=== PATIENT | female | born 1970 | race American Indian/Alaskan Native ===

== ENCOUNTER 2016-11-04 12:45 | Emergency (ER) | payer MEDICAID, OTHER ==
[2016-11-04 17:11] VITALS: BP 176/109
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
--- NOTE | 2016-11-05 09:59 | XRay Report ---
CERVICAL SPINE, 3 views: History: Neck pain. Findings: The vertebral bodies, disk spaces, posterior elements and prevertebral soft tissues are unremarkable. The dens is intact. No acute fracture or malalignment is identified. Impression: 1. No evidence for acute injury to the cervical spine.
--- NOTE | 2016-11-05 09:59 | XRay Report ---
AP CHEST: HISTORY: chest pain AP view of the chest demonstrates a normal mediastinal and cardiac contour with clear lungs and normal bony and soft tissue structures. IMPRESSION: Unremarkable AP chest.
== END 2016-11-04 19:25 | disposition home or self-care (01) ==
LOC: ED 12:45
DX: S16.1XXA Strain of muscle, fascia and tendon at neck level, initial encounter (principal); S20.219A Contusion of unspecified front wall of thorax, initial encounter; Y99.9 Unspecified external cause status; Y93.9 Activity, unspecified; Y92.9 Unspecified place or not applicable; V49.49XA Driver injured in collision with other motor vehicles in traffic accident, initial encounter
CPT/HCPCS: 71010; 72040; 99283

== ENCOUNTER 2017-11-14 08:41 | Emergency (ER) | payer OTHER ==
[2017-11-14 09:40] LABS: Basophils % (Auto) 0.5 % (0.0-1.8); Eosinophils # (Auto) 0.2 K/mm3 (0.0-0.4); Eosinophils % (Auto) 2.1 % (0.0-4.3); Hematocrit 33.3 % (30.3-42.9); Hemoglobin 10.5 gm/dl (10.1-14.3); Lymphocytes % (Auto) 26.1 % (13.4-35.0); Mean Corpuscular HGB Conc 32 % (30-34); Mean Corpuscular Volume 81 fl (79-97); Monocytes # (Auto) 0.4 K/mm3 (0.0-0.8); Monocytes % (Auto) 5.8 % (0.0-7.3); Platelet Count 315 K/mm3 (140-440); Red Blood Count 4.09 M/mm3 (3.65-5.03); Red Cell Distribution Width 18.8 % (13.2-15.2)
[2017-11-14 09:45] LABS: Mean Corpuscular Hemoglobin 26 pg (28-32)
[2017-11-14 09:54] LABS: BUN/Creatinine Ratio 13; Blood Urea Nitrogen 9 mg/dL (7-17); Calcium 9.1 mg/dL (8.4-10.2); Hemolysis Index 16
[2017-11-14] MEDS ORDERED: ZOFRAN IV ONE (09:59)
[2017-11-14] MEDS ORDERED: PROTONIX IV ONE (10:30)
--- NOTE | 2017-11-14 11:08 | Emergency Department Report ---
ED General Adult HPI - General Chief complaint: Syncope Stated complaint: ABDOMINAL PAIN Time Seen by Provider: 11/14/17 09:58 Source: patient Mode of arrival: Stretcher Limitations: No Limitations - History of Present Illness Initial comments: Patient complains of nausea, vomiting, diarrhea started 1 AM this morning. Patient also states that she's had some abdominal cramping since that time. Patient states today at work she felt slightly weird and begin to see white spots along with feeling lightheaded. Patient states the next thing she remembers is waking up with people around her. -: Sudden Radiation: non-radiation Severity scale (0 -10): 0 Improves with: none Worsens with: none Associated Symptoms: denies other symptoms Treatments Prior to Arrival: none - Related Data Home Medications Medication Instructions Recorded Confirmed Last Taken Albuterol Sulfate [Ventolin HFA] 2 puff IH Q4H PRN 04/28/13 04/28/13 04/28/13 14 :00 Previous Rx's Medication Instructions Recorded Last Taken Type Ciprofloxacin [Ciprofloxacin ORAL 500 mg PO Q12H 5 Days ml 04/28/13 Unknown Rx LIQ] Hydrocortisone/Pramoxine 10 gm RC BID #1 foam 04/28/13 Unknown Rx [Proctofoam-Hc 1%-1% Foam] Loperamide [Imodium] 2 mg PO Q2HR #15 capsule 04/28/13 Unknown Rx Ondansetron [Zofran TAB] 4 mg PO ONCE #15 tablet 04/28/13 Unknown Rx oxyCODONE /ACETAMINOPHEN [Percocet 1 tab PO Q6HR PRN #15 tablet 04/28/13 Unknown Rx 5/325 mg] Cyclobenzaprine [Flexeril] 10 mg PO BID PRN #20 tablet 11/04/16 Unknown Rx Naproxen [Naprosyn TAB] 500 mg PO BID #20 tablet 11/04/16 Unknown Rx traMADol [Ultram] 50 mg PO Q4HR PRN #30 tablet 11/04/16 Unknown Rx Allergies Allergy/AdvReac Type Severity Reaction Status Date / Time No Known Allergies Allergy Verified 11/04/16 13:55 ED Review of Systems ROS: Stated complaint: ABDOMINAL PAIN Other details as noted in HPI Comment: All other systems reviewed and negative Constitutional: denies: chills, fever Eyes: denies: eye pain, eye discharge, vision change ENT: denies: ear pain, throat pain Respiratory: denies: cough, shortness of breath, wheezing Cardiovascular: denies: chest pain, palpitations Endocrine: no symptoms reported Gastrointestinal: nausea, vomiting, diarrhea. denies: abdominal pain Genitourinary: denies: urgency, dysuria, discharge Musculoskeletal: denies: back pain, joint swelling, arthralgia Skin: denies: rash, lesions Neurological: other (syncope). denies: headache, weakness, paresthesias Psychiatric: denies: anxiety, depression Hematological/Lymphatic: denies: easy bleeding, easy bruising ED Past Medical Hx - Past Medical History Hx Hypertension: Yes Hx Asthma: Yes - Surgical History Additional Surgical History: x 3. TUBAL LIGATION - Social History Smoking Status: Unknown if ever smoked - Medications Home Medications: Home Medications Medication Instructions Recorded Confirmed Last Taken Type Albuterol Sulfate [Ventolin HFA] 2 puff IH Q4H PRN 04/28/13 04/28/13 04/28/13 14 :00 History Ciprofloxacin [Ciprofloxacin ORAL 500 mg PO Q12H 5 Days ml 04/28/13 Unknown Rx LIQ] Hydrocortisone/Pramoxine 10 gm RC BID #1 foam 04/28/13 Unknown Rx [Proctofoam-Hc 1%-1% Foam] Loperamide [Imodium] 2 mg PO Q2HR #15 capsule 04/28/13 Unknown Rx Ondansetron [Zofran TAB] 4 mg PO ONCE #15 tablet 04/28/13 Unknown Rx oxyCODONE /ACETAMINOPHEN [Percocet 1 tab PO Q6HR PRN #15 tablet 04/28/13 Unknown Rx 5/325 mg] Cyclobenzaprine [Flexeril] 10 mg PO BID PRN #20 tablet 11/04/16 Unknown Rx Naproxen [Naprosyn TAB] 500 mg PO BID #20 tablet 11/04/16 Unknown Rx traMADol [Ultram] 50 mg PO Q4HR PRN #30 tablet 11/04/16 Unknown Rx ED Physical Exam - General Limitations: No Limitations General appearance: alert, in no apparent distress - Head Head exam: Present: atraumatic, normocephalic - Eye Eye exam: Present: normal appearance, PERRL, EOMI - ENT ENT exam: Present: mucous membranes moist - Neck Neck exam: Present: normal inspection, other (no carotid bruit) - Respiratory Respiratory exam: Present: normal lung sounds bilaterally. Absent: respiratory distress, wheezes, rales, rhonchi - Cardiovascular Cardiovascular Exam: Present: regular rate, normal rhythm. Absent: systolic murmur, diastolic murmur, rubs, gallop - GI/Abdominal GI/Abdominal exam: Present: soft, normal bowel sounds. Absent: distended, tenderness - Extremities Exam Extremities exam: Present: normal inspection - Back Exam Back exam: Present: normal inspection - Neurological Exam Neurological exam: Present: alert, oriented X3, CN II-XII intact. Absent: motor sensory deficit - Psychiatric Psychiatric exam: Present: normal affect, normal mood - Skin Skin exam: Present: warm, dry, intact, normal color ED Course Vital Signs 11/14/17 11/14/17 08:54 09:17 Temperature 98.3 F Pulse Rate 75 Respiratory 18 18 Rate Blood Pressure 132/84 O2 Sat by Pulse 99 Oximetry ED Medical Decision Making - Lab Data Result diagrams: 11/14/17 09:23 11/14/17 09:23 - EKG Data -: EKG Interpreted by [place] EKG shows normal: sinus rhythm Rate: normal - EKG Data Interpretation: normal EKG - Medical Decision Making Discussed results with patient Patient offered admission but she politely declined Critical care attestation.: If time is entered above; I have spent that time in minutes in the direct care of this critically ill patient, excluding procedure time. ED Disposition Clinical Impression: Vasovagal episode Disposition: -01 TO HOME OR SELFCARE Is pt being admited?: No Does the pt Need Aspirin: No Condition: Stable Instructions: Syncope (ED) Additional Instructions: Return if symptoms become worse Referrals: PRIMARY CAREMD [Primary Care Provider] - 3-5 Days PAIGE CASTILLO MD [Staff Physician] - 3-5 Days Time of Disposition: 13:20
--- NOTE | 2017-11-14 12:30 | Cat Scan Report ---
CT HEAD WITHOUT CONTRAST: HISTORY: Syncope. TECHNIQUE: Sequential 2.5mm CT images. COMPARISON: none. FINDINGS: Cerebral Parenchyma: Within normal limits. Cerebellum: Within normal limits. Brainstem: Within normal limits. Ventricles: Normal. Sella: Normal. Extra-axial spaces: Normal. Basal Cisterns: Normal. Intracranial Hemorrhage: None. Midline Shift: None. Calvarium: Normal. Sinuses: Normal. Mastoid Air Cells: Normal. Visualized Orbits: Normal. IMPRESSION: Cranial CT scan within normal limits.
[2017-11-14 13:40] VITALS: BP 156/96
== END 2017-11-14 13:38 | disposition home or self-care (01) ==
LOC: ED 08:41
DX: R55 Syncope and collapse (principal); I10 Essential (primary) hypertension; J45.909 Unspecified asthma, uncomplicated; Z98.51 Tubal ligation status
CPT/HCPCS: 36415; 70450; 80048; 84484; 85025; 93005; 93010; 96374; 96375; 99284; C9113; J2405

== ENCOUNTER 2018-10-19 09:55 | Emergency (ER) | payer OTHER ==
[2018-10-19 10:54] LABS: Bilirubin,Urine NEG (Negative); Blood,Urine NEG (Negative); Color,Urine Yellow (Yellow); Mucus,Urine FEW /HPF; Protein,Urine <15 mg/dL mg/dL (Negative); Urobilinogen,Urine < 2.0 mg/dL (<2.0)
[2018-10-19 10:55] LABS: HCG Qualitative,Urine Negative (Negative)
[2018-10-19] MEDS ORDERED: PERCOCET 5/325 PO ONE (11:08)
--- NOTE | 2018-10-19 11:27 | Emergency Department Report ---
HPI - General Chief Complaint: Abdominal Pain Time Seen by Provider: 10/19/18 11:08 - HPI HPI: 48-year-old female presents to the emergency department with complaint of some lower abdominal pain with radiation to the back and has been going on for the past 3-4 days. At first the symptoms were intermittent but has become more constant and more intense recently. She also complains of some fever at night with a MAXIMUM TEMPERATURE of 99.7 Fahrenheit. She tried some ibuprofen and Tylenol with only some transient relief. She has a past medical history of asthma and hypertension. No primary care physician. No recent travel or sick contacts at home. She denies any dysuria, vaginal bleeding or discharge, nausea or vomiting. ED Past Medical Hx - Past Medical History Hx Hypertension: Yes Hx Asthma: Yes - Surgical History Past Surgical History?: Yes Additional Surgical History: x 3. TUBAL LIGATION - Social History Smoking Status: Current Every Day Smoker Substance Use Type: Alcohol - Medications Home Medications: Home Medications Medication Instructions Recorded Confirmed Last Taken Type Albuterol Sulfate [Ventolin HFA] 2 puff IH Q4H PRN 04/28/13 04/28/13 04/28/13 14:00 History Ciprofloxacin [Ciprofloxacin ORAL 500 mg PO Q12H 5 Days ml 04/28/13 Unknown Rx LIQ] Hydrocortisone/Pramoxine 10 gm RC BID #1 foam 04/28/13 Unknown Rx [Proctofoam-Hc 1%-1% Foam] Loperamide [Imodium] 2 mg PO Q2HR #15 capsule 04/28/13 Unknown Rx Ondansetron [Zofran TAB] 4 mg PO ONCE #15 tablet 04/28/13 Unknown Rx Cyclobenzaprine [Flexeril] 10 mg PO BID PRN #20 tablet 11/04/16 Unknown Rx Naproxen [Naprosyn TAB] 500 mg PO BID #20 tablet 11/04/16 Unknown Rx traMADol [Ultram] 50 mg PO Q4HR PRN #30 tablet 11/04/16 Unknown Rx Lisinopril 20 mg PO QDAY #30 tablet 10/19/18 Unknown Rx oxyCODONE /ACETAMINOPHEN [Percocet 1 tab PO Q6HR PRN #12 tablet 10/19/18 Unknown Rx 5/325 mg] ED Review of Systems ROS: Stated complaint: STOMACH AND BACK PAIN Other details as noted in HPI Comment: All other systems reviewed and negative Constitutional: denies: chills, fever Eyes: denies: eye pain, vision change ENT: denies: ear pain, throat pain Respiratory: denies: cough, shortness of breath Cardiovascular: denies: chest pain, palpitations Gastrointestinal: abdominal pain. denies: nausea, vomiting Genitourinary: denies: urgency, dysuria Musculoskeletal: back pain. denies: arthralgia Skin: denies: rash, lesions Neurological: denies: headache, weakness Physical Exam - Physical Exam Vital Signs: Vital Signs 10/19/18 10:00 Temperature 98.4 F Pulse Rate 89 Respiratory 20 Rate Blood Pressure 177/119 O2 Sat by Pulse 99 Oximetry Physical Exam: GENERAL: The patient is well-developed well-nourished. HEENT: Normocephalic. Atraumatic. Patient has moist mucous membranes. EYES: Extraocular motions are intact. Pupils are equal and reactive to light bilaterally. NECK: Supple. Trachea is midline. CHEST/LUNGS: Clear to auscultation. There is no respiratory distress noted. HEART/CARDIOVASCULAR: Regular. There is no tachycardia. There is no obvious murmur. ABDOMEN: Abdomen is soft. There is some mild left lower quadrant and left mid abdominal tenderness to palpation. No guarding. Patient has normal bowel sounds. There is no abdominal distention. SKIN: Skin is warm and dry. NEURO: The patient is awake, alert, and oriented. The patient is cooperative. The patient has no focal neurologic deficits. The patient has normal speech. MUSCULOSKELETAL: There is no tenderness or deformity. There is no limitation range of motion. There is no evidence of acute injury. ED Course Vital Signs 10/19/18 10:00 Temperature 98.4 F Pulse Rate 89 Respiratory 20 Rate Blood Pressure 177/119 O2 Sat by Pulse 99 Oximetry ED Medical Decision Making - Lab Data Result diagrams: 10/19/18 11:15 10/19/18 11:15 - Radiology Data Radiology results: report reviewed, image reviewed interpreted by me: Abdominal x-ray shows nonspecific nausea or bowel gas. PROCEDURE: CT ABDOMEN PELVIS W CON TECHNIQUE: Spiral CT scanning of the abdomen and pelvis is obtained admi nistration of IV contrast. HISTORY: LLQ abd pain COMPARISONS: None FINDINGS: Lower Lung torrez: No focal abnormalities seen. Calcifications in the coronary arteries indicating atherosclerotic disease. Upper Abdomen: The liver, gallbladder, the adrenal glands, and pancreas are unremarkable. There is a indeterminate slightly lobulated low-density lesion in the lower third of the spleen with a small central calcification. Etiology is uncertain. On delayed images this appears to be enhancing homogeneously. Kidneys, Ureters and Urinary bladder: No abnormalities are seen. Retroperitoneum: Atherosclerotic changes are seen in the abdominal aorta. No aneurysm is visualized. Nonspecific subcentimeter lymph nodes are seen in the retroperitoneum. No pathologically enlarged lymph nodes are identified. Bowel: Moderate diverticulosis seen in the left side of the colon. The proximal third of the descending colon there is mild wall thickening and inflammatory change in the adjacent mesentery. The appearance suggest diverticulitis. No abscess or bowel obstruction or ascites is visualized. Normal-appearing appendix seen right lower quadrant. Reproductive organs: Uterus is enlarged secondary to at least 1 mass in the uterine myometrium to the right of midline measuring approximately 4.3 cm cyst. No abnormal adnexal mass is seen on the left. Slightly irregular shaped cyst visualized in the right adnexa likely in the right ovary measuring 2.3 cm. Other: No acute bone abnormalities are seen. IMPRESSION: Diverticulosis ascending colon without evidence of diverticulitis in the proximal third of the descending colon. No abscess or ascites or free air is seen. Large uterine fibroid suspected. This can be further evaluated with pelvic ultrasound clinically indicated. Slightly lobulated low-density enhancing nodule is seen in the spleen with central calcification. Etiology is uncertain. Consider dynamic contrast-enhanced CT scan of the spleen to differentiate between enhancing splenic hemangioma versus other vascular masses. Atherosclerosis coronary arteries. This document is electronically signed by Alberto Tong MD., October 19 2018 02:38:41 PM ET Transcribed By: DFCarli Dictated By: ALBERTO TONG MD Electronically Authenticated By: ALBERTO TONG MD Signed Date/Time: 10/19/18 0590 - Medical Decision Making Patient comes in complaining of some left-sided abdominal pain. Labs have been unremarkable. Abdominal x-ray shows nonspecific nonobstructive bowel gas. A CT scan of the abdomen and pelvis with IV contrast was done that shows diverticulosis without diverticulitis, large uterine fibroid with some enlargement of the uterus, and a splenic nodule that needs further differentiation. Patient's abdomen is soft, nontoxic in appearance. She was given a dose of pain medication with some improvement. Patient was given some referrals for primary care, general surgery and PHYSICIAN INTERNIST. She will return to the ER with any worsening of her symptoms or any acute distress. - Differential Diagnosis diverticulitis, colitis, food poisoning, gastritis Critical Care Time: No Critical care attestation.: If time is entered above; I have spent that time in minutes in the direct care of this critically ill patient, excluding procedure time. ED Disposition Clinical Impression: Nodule of spleen Fibroid, uterine Qualifiers: Uterine leiomyoma location: unspecified location Qualified Code(s): D25.9 - Leiomyoma of uterus, unspecified Abdominal pain Qualifiers: Abdominal location: unspecified location Qualified Code(s): R10.9 - Unspecified abdominal pain Disposition: TO HOME OR SELFCARE Is pt being admited?: No Condition: Stable Instructions: Uterine Fibroids (ED), Abdominal Pain (ED) Additional Instructions: Please follow up with a primary care physician. I am giving you a referral for a local general surgeon, Dr. Murray, to follow up regarding the splenic nodule. I am giving you a referral for an PHYSICIAN INTERNIST to follow-up regarding your fibroids. Return to the emergency Department with any worsening of your symptoms or any acute distress. You have been prescribed a medication that can be sedating. Therefore, this medication cannot be taken prior to driving, working, being responsible for children, and cannot be mixed with alcohol of any quantity. Prescriptions: Lisinopril 20 mg PO QDAY #30 tablet oxyCODONE /ACETAMINOPHEN [Percocet 5/325 mg] 1 tab PO Q6HR PRN #12 tablet PRN Reason: Pain Referrals: [facility] [Provider Group] - 3-5 Days [facility] [Provider Group] - 3-5 Days [facility] [Outside] - 3-5 Days ED MURRAY MD [Staff Physician] - 3-5 Days
[2018-10-19 12:02] LABS: Basophils % (Auto) 0.6 % (0.0-1.8); Eosinophils # (Auto) 0.2 K/mm3 (0.0-0.4); Eosinophils % (Auto) 3.1 % (0.0-4.3); Hematocrit 29.9 % (30.3-42.9); Hemoglobin 9.5 gm/dl (10.1-14.3); Lymphocytes % (Auto) 31.3 % (13.4-35.0); Mean Corpuscular HGB Conc 32 % (30-34); Mean Corpuscular Volume 76 fl (79-97); Monocytes # (Auto) 0.5 K/mm3 (0.0-0.8); Monocytes % (Auto) 7.2 % (0.0-7.3); Platelet Count 280 K/mm3 (140-440); Red Blood Count 3.94 M/mm3 (3.65-5.03); Red Cell Distribution Width 18.5 % (13.2-15.2)
[2018-10-19 12:29] LABS: Alanine Aminotransferase 19 units/L (7-56); Albumin 3.7 g/dL (3.9-5); BUN/Creatinine Ratio 17; Blood Urea Nitrogen 12 mg/dL (7-17); Calcium 8.7 mg/dL (8.4-10.2); Hemolysis Index 9
[2018-10-19 12:34] LABS: Bilirubin,Direct < 0.2 mg/dL (0-0.2)
--- NOTE | 2018-10-19 12:58 | XRay Report ---
PROCEDURE: XR ABDOMEN 2V TECHNIQUE: Upright and supine views of the abdomen HISTORY: Abdominal Pain COMPARISONS: FINDINGS: There is moderate to large volume of stool throughout the colon. Bowel gas pattern is nonobstructive. No focal calcifications are seen. No acute osseous abnormality is seen IMPRESSION: Moderate to large volume of stool seen in the colon. Nonobstructive bowel gas pattern. This document is electronically signed by Juanita Salgado MD., October 19 2018 12:56:50 PM ET
--- NOTE | 2018-10-19 14:40 | Cat Scan Report ---
PROCEDURE: CT ABDOMEN PELVIS W CON TECHNIQUE: Spiral CT scanning of the abdomen and pelvis is obtained administration of IV contrast. HISTORY: LLQ abd pain COMPARISONS: None FINDINGS: Lower Lung torrez: No focal abnormalities seen. Calcifications in the coronary arteries indicating a therosclerotic disease. Upper Abdomen: The liver, gallbladder, the adrenal glands, and pancreas are unremarkable. There is a indeterminate slightly lobulated low-density lesion in the lower third of the spleen with a small ce ntral calcification. Etiology is uncertain. On delayed images this appears to be enhancing homogeneou sly. Kidneys, Ureters and Urinary bladder: No abnormalities are seen. Retroperitoneum: Atherosclerotic changes are seen in the abdominal aorta. No aneurysm is visualized. Nonspecific subcentimeter lymph nodes are seen in the retroperitoneum. No pathologically enlarged ly mph nodes are identified. Bowel: Moderate diverticulosis seen in the left side of the colon. The proximal third of the descend ing colon there is mild wall thickening and inflammatory change in the adjacent mesentery. The appear ance suggest diverticulitis. No abscess or bowel obstruction or ascites is visualized. Normal-appeari ng appendix seen right lower quadrant. Reproductive organs: Uterus is enlarged secondary to at least 1 mass in the uterine myometrium to th e right of midline measuring approximately 4.3 cm cyst. No abnormal adnexal mass is seen on the left. Slightly irregular shaped cyst visualized in the right adnexa likely in the right ovary measuring 2. 3 cm. Other: No acute bone abnormalities are seen. IMPRESSION: Diverticulosis ascending colon without evidence of diverticulitis in the proximal third of the descen ding colon. No abscess or ascites or free air is seen. Large uterine fibroid suspected. This can be further evaluated with pelvic ultrasound clinically lucy cated. Slightly lobulated low-density enhancing nodule is seen in the spleen with central calcification. Ana Laura ology is uncertain. Consider dynamic contrast-enhanced CT scan of the spleen to differentiate between enhancing splenic hemangioma versus other vascular masses. Atherosclerosis coronary arteries. This document is electronically signed by Alberto Mcarthur MD., October 19 2018 02:38:41 PM ET
[2018-10-19 15:35] VITALS: BP 176/121
== END 2018-10-19 15:34 | disposition home or self-care (01) ==
LOC: ED 09:55
DX: D25.9 Leiomyoma of uterus, unspecified (principal); R50.9 Fever, unspecified; D73.9 Disease of spleen, unspecified; I10 Essential (primary) hypertension; J45.909 Unspecified asthma, uncomplicated; F17.200 Nicotine dependence, unspecified, uncomplicated; Z98.51 Tubal ligation status
CPT/HCPCS: 36415; 74019; 74177; 80048; 80076; 81001; 81025; 83690; 85025; 99284; Q9967

== ENCOUNTER 2021-02-09 09:56 | Emergency (ER) | payer OTHER ==
[2021-02-09 10:06] VITALS: BP 153/102
--- NOTE | 2021-02-09 10:38 | Electrocardiograph Report ---
[facility] Test Date: 2021-02-09 Test Time: 10:10:14 Pat Name: CYNDY PHIPPS Department: Room: Gender: F Food Service Clerk: BRONSON : 1970 Requested By: ED DOC Order Number: [id number] Reading MD: Wyatt Villegas Measurements Intervals [place] Rate: 80 P: 38 MO: 166 QRS: 4 QRSD: 92 T: 9 QT: 395 QTc: 454 Interpretive Statements Sinus rhythm Probable left atrial enlargement Probable left ventricular hypertrophy No previous ECG available for comparison Electronically Signed On 02-09-2021 10:37:59 EDT by Wyatt Villegas
--- NOTE | 2021-02-09 11:23 | Emergency Department Report ---
ED General Adult HPI - General Chief complaint: Dizziness Stated complaint: WEAK/DIZZY/HIGH BP Source: patient Mode of arrival: Ambulatory Limitations: No Limitations - History of Present Illness Initial comments: 50-year-old -[place] female presents to the emergency room complaining of dizziness fatigue hypertension that started on Sunday. Patient reports that she has a history of hypertension but is not currently on any medication as she does not have a primary care provider. Patient does state that she has been vaccinated and has had a negative Covid test on Sunday as well as today. Patient denies any pain at this time. She just states that she just does not feel too good. Patient does work as a SUBSTATION TECHNICIAN. Onset/Timin -: days(s) Severity scale (0 -10): 5 Improves with: none Worsens with: none Associated Symptoms: loss of appetite, malaise, weakness. denies: confusion, chest pain, cough, diaphoresis, fever/chills, nausea/vomiting Treatments Prior to Arrival: none - Related Data Home Medications Medication Instructions Recorded Confirmed Last Taken Albuterol Sulfate [Ventolin HFA] 2 puff IH Q4H PRN 04/28/13 04/28/13 04/28/13 14:00 Previous Rx's Medication Instructions Recorded Last Taken Type Ciprofloxacin [Ciprofloxacin ORAL 500 mg PO Q12H 5 Days ml 04/28/13 Unknown Rx LIQ] Hydrocortisone/Pramoxine 10 gm RC BID #1 foam 04/28/13 Unknown Rx [Proctofoam-Hc 1%-1% Foam] Loperamide [Imodium] 2 mg PO Q2HR #15 capsule 04/28/13 Unknown Rx Ondansetron [Zofran TAB] 4 mg PO ONCE #15 tablet 04/28/13 Unknown Rx Cyclobenzaprine [Flexeril] 10 mg PO BID PRN #20 tablet 11/04/16 Unknown Rx Naproxen [Naprosyn TAB] 500 mg PO BID #20 tablet 11/04/16 Unknown Rx traMADoL [Ultram] 50 mg PO Q4HR PRN #30 tablet 11/04/16 Unknown Rx lisinopriL [Lisinopril] 20 mg PO QDAY #30 tablet 10/19/18 Unknown Rx oxyCODONE /ACETAMINOPHEN [Percocet 1 tab PO Q6HR PRN #12 tablet 10/19/18 Unknown Rx 5/325 mg] Ferrous Sulfate [Ferrous Sulfate 324 mg PO QDAY #90 tablet. 02/09/21 Unknown Rx 324 MG] amLODIPine 5 mg PO DAILY #90 tab 02/09/21 Unknown Rx Allergies Allergy/AdvReac Type Severity Reaction Status Date / Time No Known Allergies Allergy Verified 02/09/21 10:02 ED Review of Systems ROS: Stated complaint: WEAK/DIZZY/HIGH BP Other details as noted in HPI Comment: All other systems reviewed and negative ED Past Medical Hx - Past Medical History Hx Hypertension: Yes Hx Asthma: Yes - Surgical History Additional Surgical History: x 3. TUBAL LIGATION - Social History Smoking Status: Current Every Day Smoker Substance Use Type: Alcohol - Medications Home Medications: Home Medications Medication Instructions Recorded Confirmed Last Taken Type Albuterol Sulfate [Ventolin HFA] 2 puff IH Q4H PRN 04/28/13 04/28/13 04/28/13 14:00 History Ciprofloxacin [Ciprofloxacin ORAL 500 mg PO Q12H 5 Days ml 04/28/13 Unknown Rx LIQ] Hydrocortisone/Pramoxine 10 gm RC BID #1 foam 04/28/13 Unknown Rx [Proctofoam-Hc 1%-1% Foam] Loperamide [Imodium] 2 mg PO Q2HR #15 capsule 04/28/13 Unknown Rx Ondansetron [Zofran TAB] 4 mg PO ONCE #15 tablet 04/28/13 Unknown Rx Cyclobenzaprine [Flexeril] 10 mg PO BID PRN #20 tablet 11/04/16 Unknown Rx Naproxen [Naprosyn TAB] 500 mg PO BID #20 tablet 11/04/16 Unknown Rx traMADoL [Ultram] 50 mg PO Q4HR PRN #30 tablet 11/04/16 Unknown Rx lisinopriL [Lisinopril] 20 mg PO QDAY #30 tablet 10/19/18 Unknown Rx oxyCODONE /ACETAMINOPHEN [Percocet 1 tab PO Q6HR PRN #12 tablet 10/19/18 Unknown Rx 5/325 mg] Ferrous Sulfate [Ferrous Sulfate 324 mg PO QDAY #90 tablet. 02/09/21 Unknown Rx 324 MG] amLODIPine 5 mg PO DAILY #90 tab 02/09/21 Unknown Rx ED Physical Exam - General Limitations: No Limitations General appearance: alert, in no apparent distress - Head Head exam: Present: atraumatic, normocephalic - Eye Eye exam: Present: normal appearance - ENT ENT exam: Present: mucous membranes moist - Neck Neck exam: Present: normal inspection, full ROM - Respiratory Respiratory exam: Present: normal lung sounds bilaterally. Absent: accessory muscle use - Cardiovascular Cardiovascular Exam: Present: regular rate - GI/Abdominal GI/Abdominal exam: Present: soft, normal bowel sounds - Extremities Exam Extremities exam: Present: normal inspection, full ROM - Back Exam Back exam: Present: normal inspection - Neurological Exam Neurological exam: Present: alert, oriented X3, normal gait - Psychiatric Psychiatric exam: Present: normal affect, normal mood - Skin Skin exam: Present: warm, dry, intact, normal color. Absent: rash ED Course Vital Signs 02/09/21 10:04 Temperature 98.8 F Pulse Rate 90 Respiratory 20 Rate Blood Pressure 153/102 O2 Sat by Pulse 99 Oximetry ED Medical Decision Making - Lab Data Result diagrams: 02/09/21 11:41 02/09/21 11:41 Laboratory Tests 02/09/21 02/09/21 02/09/21 11:41 11:41 Unknown WBC 5.1 RBC 4.18 Hgb 8.2 L Hct 27.9 L MCV 67 L MCH 20 L MCHC 30 RDW 21.5 H Plt Count 379 Lymph % (Auto) 32.7 [place] % (Auto) 6.6 Eos % (Auto) 1.4 Baso % (Auto) 1.2 Lymph # (Auto) 1.7 [place] # (Auto) 0.3 Eos # (Auto) 0.1 Baso # (Auto) 0.1 Seg Neutrophils % 58.1 Seg Neutrophils # 3.0 Sodium 136 L Potassium 3.7 Chloride 99.4 Carbon Dioxide 28 Anion Gap 12 BUN 6 L Creatinine 0.6 Estimated GFR > 60 BUN/Creatinine Ratio 10 Glucose 97 Calcium 9.3 Total Bilirubin 0.40 AST 23 ALT 15 Alkaline Phosphatase 56 Total Protein 7.5 Albumin 4.1 Albumin/Globulin Ratio 1.2 Urine Color Red Urine Turbidity Slightly-cloudy Urine pH 6.0 Ur Specific [place] 1.006 Urine Protein 100 mg/dl Urine Glucose (UA) Neg Urine Ketones Neg Urine Blood Lg Urine Nitrite Neg Urine Bilirubin Neg Urine Urobilinogen < 2.0 Ur Leukocyte Esterase Mod Urine WBC (Auto) 8.0 H Urine RBC (Auto) > 182.0 Urine Mucus Few - Medical Decision Making 50-year-old -[place] female presents to the emergency room complaining of dizziness fatigue hypertension that started on Sunday. Patient reports that she has a history of hypertension but is not currently on any medication as she does not have a primary care provider. Patient does state that she has been vaccinated and has had a negative Covid test on Sunday as well as today. Latasha gomez denies any pain at this time. She just states that she just does not feel too good. Patient does work as a SUBSTATION TECHNICIAN., Basic labs CBC,CMP, urinalysis. EKG was done just shows left ventricular hype rtrophy or true and probably left atrial enlargement. Patient has microcytic anemia we will place on ferrous sulfate refer her to a primary care provider and place her on amlodipine 5 mg daily for elevated blood pressure. Patient's been referred to several primary care providers. Critical care attestation.: If time is entered above; I have spent that time in minutes in the direct care of this critically ill patient, excluding procedure time. ED Disposition Clinical Impression: Anemia Qualifiers: Anemia type: unspecified type Qualified Code(s): D64.9 - Anemia, unspecified HTN (hypertension) Qualifiers: Hypertension type: unspecified Qualified Code(s): I10 - Essential (primary) hypertension Disposition: - TO HOME OR SELFCARE Is pt being admited?: No Does the pt Need Aspirin: No Condition: Stable Instructions: Hypertension (ED), Managing Your Hypertension Additional Instructions: Labs show that she have mild microcytic anemia which is treatment with ferrous sulfate. I also want to to follow-up with a AREA LOSS PREVENTION MANAGER for your heavy menstrual cycles that can also be due to her anemia. Follow-up with a primary care provider for your chronic disease management of your blood pressure. Please take all medications as prescribed. Prescriptions: amLODIPine 5 mg PO DAILY #90 tab Ferrous Sulfate [Ferrous Sulfate 324 MG] 324 mg PO QDAY #90 tablet. Referrals: PHILIP LOVELACE MD [Primary Care Provider] - 3-5 Days LJ SANCHEZ MD [Staff Physician] - 3-5 Days LEIGH ANN MARTINES MD [Staff Physician] - 3-5 Days Forms: Work/School Release Form(ED) Time of Disposition: 13:06
[2021-02-09 11:35] LABS: Bilirubin,Urine NEG (Negative); Blood,Urine LG (Negative); Color,Urine Red (Yellow); Mucus,Urine FEW /HPF; Urobilinogen,Urine < 2.0 mg/dL (<2.0)
[2021-02-09 11:49] LABS: RBC,Urine > 182.0 /HPF (0.0-6.0)
[2021-02-09 11:57] LABS: Basophils # (Auto) 0.1 K/mm3 (0.0-0.1); Basophils % (Auto) 1.2 % (0.0-1.8); Eosinophils # (Auto) 0.1 K/mm3 (0.0-0.4); Eosinophils % (Auto) 1.4 % (0.0-4.3); Lymphocytes # (Auto) 1.7 K/mm3 (1.2-5.4); Lymphocytes % (Auto) 32.7 % (13.4-35.0); Mean Corpuscular HGB Conc 30 % (30-34); Monocytes # (Auto) 0.3 K/mm3 (0.0-0.8); Monocytes % (Auto) 6.6 % (0.0-7.3); Platelet Count 379 K/mm3 (140-440); Red Blood Count 4.18 M/mm3 (3.65-5.03)
[2021-02-09 12:02] LABS: Hematocrit 27.9 % (30.3-42.9); Hemoglobin 8.2 gm/dl (10.1-14.3); Mean Corpuscular Volume 67 fl (79-97)
[2021-02-09 12:03] LABS: Red Cell Distribution Width 21.5 % (13.2-15.2)
[2021-02-09 12:18] LABS: Alanine Aminotransferase 15 units/L (7-56); Albumin 4.1 g/dL (3.9-5); Blood Urea Nitrogen 6 mg/dL (7-17); Calcium 9.3 mg/dL (8.4-10.2); Hemolysis Index 0
[2021-02-09 12:36] LABS: BUN/Creatinine Ratio 10
== END 2021-02-09 13:59 | disposition home or self-care (01) ==
LOC: ED 09:56
DX: D64.9 Anemia, unspecified (principal); I10 Essential (primary) hypertension; J45.909 Unspecified asthma, uncomplicated; F17.200 Nicotine dependence, unspecified, uncomplicated; Z98.890 Other specified postprocedural states
CPT/HCPCS: 36415; 80053; 81001; 85025; 93005; 99283